=== PATIENT | female | born 1980 | race Caucasian/White ===

== ENCOUNTER 2023-03-02 13:48 | Outpatient (REF) | payer OTHER, SELFPAY ==
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
== END 2023-03-02 13:49 | disposition home or self-care (01) ==
LOC: HO.SH 13:48
PROVIDERS: Visit Provider Internal Medicine
DX: H90.3 Sensorineural hearing loss, bilateral (principal)
CPT/HCPCS: 92557; 92567; 92588; 92700

== ENCOUNTER 2023-08-05 12:56 | Outpatient (REF) | payer OTHER, SELFPAY | END 2023-08-05 12:57 | disposition home or self-care (01) | LOC: HO.SH 12:56 | PROVIDERS: Visit Provider Internal Medicine | DX: Z01.118 Encounter for examination of ears and hearing with other abnormal findings (principal); H90.3 Sensorineural hearing loss, bilateral | CPT/HCPCS: 92552; 92556; 92567; 92588 ==

== ENCOUNTER → 2025-08-01 15:51 | Outpatient (AMB) | payer OTHER, SELFPAY ==
--- NOTE | 2025-08-01 15:54 | MHC.OFFVIS ---
Intake Visit Reasons: 6m Allergies sulfamethoxazole (From Bactrim) Allergy (Unknown, Verified 08/01/25 15:54) Unknown trimethoprim (From Bactrim) Allergy (Unknown, Verified 08/01/25 15:54) Unknown Medication List - Last Reconciled 08/01/25 by Winter Dejesus CNP bupropion HCl XL 300 mg PO DAILY fluoxetine 60 mg PO QAM hydroxychloroquine 200 mg PO BID lorazepam 0.5 mg PO BID PRN metronidazole 0.75% topical DAILY minoxidil mg PO sumatriptan succinate 100 mg PO DIRECTED topiramate 100 mg PO DAILY HPI Comments Details: 45-year-old woman with depression, anxiety, mild tremors, and chronic headaches since age 14. She was doing okay. Migraines were controlled with topiramate. She had migraine about 1x/month. Sumatriptan as needed helped. Tremors in hands were much better. Sleep was okay. [facility] Medical History (Updated 08/01/25 @ 16:17 by Winter Dejesus CNP) Anxiety Depression Review of Systems Const Denies chills, Denies daytime sleepiness, Denies difficulty sleeping, Reports fatigue, Denies fever(s), Denies frequent falls, Reports headache(s), Denies increased appetite, Denies poor appetite, Denies snoring, Denies weakness, Denies weight gain and Denies weight loss Eyes Denies loss of vision ENT Denies vertigo, Reports dizziness, Reports headache(s) and Reports neck pain Card Denies chest pain at rest, Denies chest pain with activity, Denies syncope, Denies leg edema, Denies palpitations, Denies dyspnea and Denies dyspnea on exertion Resp Denies cough, Denies dyspnea, Denies dyspnea on exertion and Denies snoring GI Denies abdominal pain, Denies constipation, Denies heartburn, Denies diarrhea and Denies nausea Denies urinary frequency, Denies urinary incontinence and Denies urinary urgency Musc Denies abnormal gait, Denies back pain, Denies myalgias, Denies arthralgias, Reports neck pain, Denies numbness and Denies tingling Neuro Denies abnormal gait, Denies vertigo, Reports dizziness, Denies syncope, Denies frequent falls, Reports headache(s), Denies lack of coordination, Denies loss of vision, Reports memory loss, Denies numbness, Denies Other visual disturbances, Denies restless legs, Denies seizure-like activity, Denies tingling, Denies paresthesias, Denies tremor(s) and Denies weakness Psych Reports anxiety, Reports depression, Denies auditory hallucinations, Reports memory loss and Denies visual hallucinations Endo Reports fatigue and Denies palpitations Physical Exam Const Other: General Appearance:? normal, in no acute distress. Heart:? S1, S2 normal, no murmurs. Lungs:? clear anteriorly and posteriorly. Musculoskeletal:? normal. Extremities:? no edema. Psych:? alert, oriented, cognitive function intact, cooperative with exam. Neuro Other: Abnormal Neurological Findings:?Very mild hand tremors on sustained posture. Mental Status: alert and oriented X 3. Normal attention, orientation, memory, and affect. Cranial Nerves: Pupils are equal, round, and reactive to light. External ocular muscles are intact. Visual schneider are full, no ptosis. Face is symmetrical, no facial weakness or droop. Facial sensations are normal. Tongue protrudes in midline. Palate elevates symmetrically. Shoulder shrugging is normal Motor Examination: Normal muscle tone, bulk and strength. No atrophy or fasciculations. No drift of the extended upper extremities. DTR 2+. Plantars are flexor. Sensory Exam: Normal light touch, temperature, pinprick, vibration, and joint-position sensations. Rhomberg sign is absent. Coordination: No ataxia. No titubation. Gait Exam: Within normal limits. Cerebellar Signs: [id number] is okay. Extrapyramidal System: Tremor as above. No rigidity with normal facial expressions. No bradykinesia. No bradyphrenia. Normal arm swing and posture. No propulsion or retropulsion. Speech: Normal. Assessment & Plan Assessment & Plan (1) Migraine: Code(s): G43.909 - Migraine, unspecified, not intractable, without status migrainosus Category: Medical Qualifiers: Intractability: not intractable Migraine type: unspecified Status migrainosus presence: without status migrainosus Qualified Code(s): G43.909 - Migraine, unspecified, not intractable, without status migrainosus Plan: Continue topiramate 100mg 1 tablet at bedtime. Continue sumatriptan 100mg 1 tablet as needed for migraine. (2) Tremor: Code(s): R25.1 - Tremor, unspecified Category: Medical Plan: Tremors were mild and no medication was needed at this time. Medications: New sumatriptan succinate take 1 tab at onset of headache; if no relief, may repeat 1 tab after at least 2 hrs; max = 2 tabs/24 hrs PO 27 tabs 1RF 90 days topiramate 100 mg PO BEDTIME 90 tabs 1RF 90 days Discontinued sumatriptan succinate Discontinued Reason: Order 100 mg PO DIRECTED Coding Level of Care Code Est Pt Level 4 (48711) Diagnoses Migraine without status migrainosus, not intractable, unspecified migraine type G43.909 Intractability: not intractable Migraine type: unspecified Status migrainosus presence: without status migrainosus Tremor R25.1
--- OUTSIDE RECORDS SUMMARY | 2025-08-01 18:14 | XMS_ITS | Clinical Summary ---
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 3 Active butalbital-acet aminophen-caffe ine (FIORICET, ESGIC) 50-325-40 mg per tablet Take 1 Tablet by mouth every 4 hours as needed for Pain for up to 28 days. 3 Active metroNIDAZOLE (METROLOTION) 0.75 % lotion lotion Apply 1 Dose topically 2 times daily. 1 Active multivitamin (MULTI-DAY ORAL) MULTI-DAY VITAMINS OR Patient si tab daily Active SUMAtriptan (IMITREX) 100 mg tablet 4 Active topiramate (TOPAMAX) 100 mg tablet Take 1 tablet (100 mg total) by mouth 1 (one) time each day. 5 Active LORazepam (ATIVAN) 0.5 mg tablet Take 1 tablet (0.5 mg total) by mouth 2 (two) times a day if needed for anxiety. Max Daily Amount: 1 mg 30 tablet 5 Active Lo-Zumandimine, 28, 3-0.02 mg per tablet TAKE 1 TABLET BY MOUTH DAILY TAKE ONLY ACTIVE TABLETS, SKIP PLACEBO WITH GOAL OF THERAPEUTIC AMENORRHEA 84 tablet 2 5 Active buPROPion XL (WELLBUTRIN XL) 300 mg 24 hr tablet Take 1 tablet (300 mg total) by mouth 1 (one) time each day in the morning. 90 tablet 1 5 Active FLUoxetine (PROzac) 20 mg capsule Take 3 capsules (60 mg total) by mouth 1 (one) time each day. 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 Could be seasonal. Lichen simplex 08/08/2020 Overview (07/04/2024): Last Assessment & Plan: Likely LSC related to hormonal changes in the month. Could be cyclic yeast. Will send yeast culture and have her monitor symptoms. Burst and taper of Mycolog. Return prn lack of improvement or recurrence. Vitamin D deficiency 01/01/2020 Overview (07/04/2024): Last Assessment & Plan: Increase dose to 2,000 units daily. Low serum vitamin B12 01/01/2020 Hypertriglyceridemia 01/01/2020 Allergic rhinitis 01/17/2015 Mixed hyperlipidemia 09/17/2011 Tension headache 09/17/2010 History of cholecystectomy 07/19/2009 Weight gain 05/28/2008 Overview (07/04/2024): Last Assessment & Plan: I explained to Sabas that her weight changes likely have more to do with her diet and exercise, but given she requires OCP for contraception anyway, she may have some benefit to her weight. We will see. I recommended calorie counting, and regular cardio and weight bearing exercise for weight loss. She will try this. She declines referral to soda worker or weight management. Anxiety 05/28/2008 Depression 10/28/2005 Encounters Date Type Department Care Team Description 07/02/2025 8:00 AM EDT Office Visit Adult [address] [phone] Shane Antonio MD Hypersomnolence (Primary Dx); Need for prophylactic vaccination and inoculation against influenza; Other fatigue; Depression, unspecified depression type; Anxiety from Last 3 Months Immunizations Immunization Administration Dates Next Due DTP 03/03/1983, 9,1978,1977,1978 H1N1 Inj Preservative Free 08/07/2009 HPV 9-valent (Gardisil) 9yo to less than 46yo 12/27/2022 Influenza trivalent, MDCK, 0 .5mL, preservative free (Flucelvax) 6mo and older 07/02/2025 Influenza trivalent, with preservative (Fluzone; Afluria) 6mo and older 07/19/2023,07/12/2017,06/30/2016,2010,06/19/2009,07/30/2008 Influenza, Unspecified 07/03/2018 MMR, measles mumps and rubel la Live (Priorix; M-M-R II) 12mo and older 05/27/2010,04/02/1992,05/15/1979 Measles 04/27/2010 Moderna SARS-CoV-2 COVID-19, mRNA, LNP-S, preservative free 08/07/2021,11/11/2020,10/14/2020 OPV 03/03/1983, 9,1978,1977,1978 PPD Test 06/17/2004 Rubella 02/09/2002 Td Tetanus diptheria (Tdvax) 7yo and older 05/01/2001 Tdap Tetanus diptheria acell ular pertussis (Boostrix; Adacel) 7yo and older 03/10/2021,09/17/2010 Surgical History Surgery Date Site/Laterality Comments COLONOSCOPY 10/13/07 PROCEDURE: [place] COLONOSCOPY FLX DX W/COLLJ SPEC WHEN PFRMD; COMMENT: Up to cecum, excellent preparation, normal CHOLECYSTECTOMY PROCEDURE: AK LAPAROSCOPY SURG CHOLECYSTECTOMY; COMMENT: 2005 MULTIPLE TOOTH EXTRACTIONS PROCEDURE: HISTORICAL DENTAL EXTRACTION Medical History Medical History Date Comments Depressive disorder, not els ewhere classified 10/28/2005 DX:Depressive disorder, not elsewhere classified S/P cholecystectomy DX:S/P beba cystectomy Other specified personal his tory presenting hazards to health(V15.89) DX:Other specifie d personal history presenting hazards to health(V15.89); COMMENT: 2000 Family History Medical History Relation Name Comments Hyperlipidemia Father Heart attack Maternal Grandfather 62 mi Hypertension Maternal Grandfather Diabetes Maternal Grandmother Other cancer Maternal Grandmother esophag eal Thyroid disease Maternal Grandmother Other: BCC Mother mohs procedure, headache Hypertension Paternal Grandfather Breast cancer Neg Hx Colon cancer Neg Hx Ovarian cancer Neg Hx Pancreatic cancer Neg Hx Uterine cancer Neg Hx Relation Name Status Comments Father Alive Maternal Grandfather Maternal Grandmother Mother Alive Paternal Grandfather Social History Tobacco Use Types Packs/Day Years Used Date Smoking Tobacco: Never Smokeless Tobacco: Never Tobacco Cessation:Counseling Given: Not Answered Alcohol Use Standard Drinks/Week Comments Yes 0 (1 standard drink = 0.6 oz pur e alcohol) Housing Instability Answer Date Recorde d Are you worried that in the next 2 months you may not have stable housing? No 08/06/2024 Food Access & Nutrition Answer Date Rec orded Do you have access to a vari ety of food including fruits and vegetables? Yes 08/06/2024 Access to Healthcare Answer Date Record ed Within the last 3 months, ho w many times did you visit the emergency department for your medical care? 0 08/06/2024 Health Literacy Answer Date Recorded How often do you need to hav e someone help you when you read instructions, pamphlets, or other written material from your doctor or pharmacy? Never 08/06/2024 Caregiver: How often do you need to have someone help you when you read instructions, pamphlets, or other written material from your doctor or pharmacy? Not on file 08/06/2024 Financial Risk Answer Date Recorded How hard is it for you to pa y for the very basics like food, housing, medical care, and air conditioning / heating? Not very hard 08/06/2024 Transportation Answer Date Recorded Has the lack of transportati on kept you from meetings, work, or from getting things needed for daily living? No Has the lack of transportati on kept you from medical appointments or from getting medications? No 08/06/2024 Social Isolation Answer Date Recorded How often do you feel lonely or isolated from those around you? Sometimes 08/06/2024 Food Risk Answer Date Recorded Within the past 12 months we worried whether our food would run out before we got money to buy more. Never true 08/06/2024 Within the past 12 months th e food we bought just didn't last and we didn't have money to get more. Never true 08/06/2024 Dependent Care Answer Date Recorded Do you need help finding or paying for care for your loved ones. For example, child support investigator or elderly care for an older adult? No 08/06/2024 Education Answer Date Recorded Do you think completing more education or training, like finishing a GED, going to college, or learning a trade, would be helpful for you? No 08/06/2024 Employment and Income Answer Date Recor ded During the last four weeks, have you been actively looking for work? No 08/06/2024 Living Situation Answer Date Recorded What is your living situation? Unrecognized valu e 08/06/2024 Comments No Sex and Gender Information Value Date Recorded Sex Assigned at Not on file Legal Sex Female 8:51 PM EST Gender Identity Not on file Sexual Orientation Not on file Obstetrics History Para Term AB IAB SAB Ectopic Multiple Livin g Live Births 0 0 0 0 Last Filed Vital Signs Vital Sign Reading Time Taken Comments Blood Pressure 108/64 07/02/2025 8:04 AM EDT Pulse 88 07/02/2025 8:04 AM EDT Temperature 36.6 C (97.8 F) 07/02/2025 8:04 AM EDT Respiratory Rate 14 07/02/2025 8:04 AM EDT Oxygen Saturation 99% 07/02/2025 8:04 AM EDT Inhaled Oxygen Concentration - - Weight 63 kg (139 lb) 07/02/2025 8:04 AM EDT Height 160 cm (5' 3 ) 07/02/2025 8:04 AM EDT Body Mass Index 24.62 07/02/2025 8:04 AM EDT Plan of Treatment Upcoming Encounters Date Type Department Care Team (Late st Contact Info) Description 08/26/2025 4:00 PM EST Appointment Radiology Department - [address] [phone] 10/09/2025 4:00 PM EST Office Visit [facility] - [address] [phone] Kamar Dangelo PA [address] [place], [place] 01/30/2026 3:45 PM EDT Office Visit Nephrology - [address] [phone] Sohan Mendoza MD [address] [phone] Health Maintenance Due Date Last Done Comments Hepatitis B Vaccines (1 of 3 - 19+ 3-dose series) 1997 HIV Screening 11/02/2019 Hepatitis C Screening 11/02/2019 HPV Vaccines (2 - 3-dose SCDM series) 01/24/2023 12/27/2022 COVID-19 Vaccine ( season) 2025 09/20/2022, 08/07/2021, 11/11/2020, Additional history exists Social Influencers of Health Screening 08/06/2025 08/06/2024 Breast Cancer Screening 08/10/2026 08/10/20 24, 08/01/2023, 07/23/2022, Additional history exists Cervical Cancer Screening: HPV 12/08/2026 12/08/2021 Cholesterol Screening (Lipid Panel) 06/13/2028 06/13/2023 Colorectal Cancer Screening: Colonoscopy 03/16/2029 03/16/2024 DTaP,Tdap,and Td Vaccines (9 - Td or Tdap) 03/10/2031 03/10/2021, 09/17/2010, 05/01/2001, Additional history exists RSV Immunization Adult Patients (1 - 1-dose 75+ series) 2053 IPV Vaccines Completed 03/03/1983, 10/1978, 1978, Additional history exists MMR Vaccines Completed 05/27/2010, 10/1991, 05/15/1979 Depression Screening Completed 03/01/2025 Influenza Vaccine Completed 07/02/2025, , 07/03/2018, Additional history exists HIB Vaccines Aged Out No longer eligi ble based on patient's age to complete this topic Hepatitis A Vaccines Aged Out No long er eligible based on patient's age to complete this topic Meningococcal ACWY Vaccine Aged Out N o longer eligible based on patient's age to complete this topic Meningococcal B Vaccine Aged Out No l onger eligible based on patient's age to complete this topic Pneumococcal Vaccine: Pediatrics (0 to 5 Years) and At-Risk Patients (6 to 49 Years) Aged Out No longer eligible based on patient's age to complete this topic RSV Immunization Patients Under 20 months Aged Out No longer eligible based on patient's age to complete this topic Varicella Vaccines Aged Out No longer eligible based on patient's age to complete this topic Procedures Procedure Name Priority Date/Time Associated Diagnosis Comments MG MAMMO DIGITAL SCREENING W ALEX BILAT Routine 08/10/2024 4:05 PM EST Encounter for screening mammogram for breast cancer EXTERNAL COLONOSCOPY REPORT Routine 03/16/2024 12:00 AM EDT LIPID PANEL Routine 06/13/2023 HM HPV Routine 12/08/2021 from Last 3 Months or Most Recently Relevant to Health Maintenance Results * MG Mammo Digital Screening w Alex bilat (08/10/2024 4:05 PM EST) Anatomical Region Laterality Modality Breast Bilateral Mammography 08/13/2024 9:33 AM EST Impressions 08/13/2024 11:30 AM EST Stable mammographic appearance of the breasts. No evidence of malignancy is seen. A negative mammogram in the presence of a clinically suspicious palpable abnormality does not preclude the possibility of malignancy or alter the indications for biopsy. BI-RADS: Category 1: Negative RECOMMENDATION(S): 1: Routine screening mammogram BILATERAL in 1 year. Mammo Location: [facility], [address] [place] [address], [phone], . -------- FINAL REPORT -------- Dictated By: Rubi Frias Dictated Date: 08/13/2024 09:33 ET Assigned Physician: Rubi Frias Reviewed and Electronically Signed By: Rubi Frias Signed Date: 08/13/2024 11:30 ET Workstation ID: [id number] Transcribed By: Self Edit Transcribed Date: 08/13/2024 09:34 ET Narrative 08/13/2024 11:30 AM EST EXAM: MAMMO DIGITAL SCREENING W ALEX BILAT EXAM DATE: 08/10/2024 4:03 PM HISTORY: Breast cancer screen, avg risk, asymptomatic (Age => 40y) COMPARISON: Mammograms dating back to 07/12/2020 with most recent of 08/01/2023. TECHNIQUE: Bilateral digital breast tomosynthesis was performed in the CC and MLO projections. Computer aided detection with IQ Elite AI 3D 3.1 was employed. TISSUE DENSITY: c. The breasts are heterogeneously dense. FINDINGS: No suspicious masses, grouped microcalcifications, or areas of architectural distortion are seen. The skin and vascularity are unremarkable. Procedure Note Rubi Frias MD - 08/13/2024 EXAM: MAMMO DIGITAL SCREENING W ALEX BILAT EXAM DATE: 08/10/2024 4:03 PM HISTORY: Breast cancer screen, avg risk, asymptomatic (Age => 40y) COMPARISON: Mammograms dating back to 07/12/2020 with most recent of08/01/2023. TECHNIQUE: Bilateral digital breast tomosynthesis was performed in the CCand MLO projections. Computer aided detection with i[employer] AI 3D 3.1was employed. TISSUE DENSITY: c. The breasts are heterogeneously dense. FINDINGS: No suspicious masses, grouped microcalcifications, or areas ofarchitectural distortion are seen. The skin and vascularity areunremarkable. IMPRESSION: Stable mammographic appearance of the breasts. No evidence of malignancyis seen. A negative mammogram in the presence of a clinically suspicious palpableabnormality does not preclude the possibility of malignancy or alter theindications for biopsy. BI-RADS: Category 1: Negative RECOMMENDATION(S): 1: Routine screening mammogram BILATERAL in 1 year. Mammo Location: [facility], [address] [place] [address], [phone], . -------- FINAL REPORT -------- Dictated By: Rubi Frias Dictated Date: 08/13/2024 09:33 ET Assigned Physician: Rubi Frias Reviewed and Electronically Signed By: Rubi Frias Signed Date: 08/13/2024 11:30 ET Workstation ID: [id number] Transcribed By: Self Edit Transcribed Date: 08/13/2024 09:34 ET Lidia Andrews MD IMG BI PROCEDURES Final Res ult * External Colonoscopy Report (03/16/2024 12:00 AM EDT) Anatomical Region Laterality Modality Endoscopy Result [facility] Historical Provider GI~PROCEDURE ORDERABLES E dited Result - Final * (ABNORMAL) Lipid panel (06/13/2023) Pathologist [facility] LDL/HDL Ratio 3 0 - 4 Triglycerides 144 0 - 150 mg/dL Cholesterol 245(A) 0 - 200 mg/dL HDL 85 >=40 mg/dL LDL Cholesterol 132(A) 0 - 100 mg/dL Blood Venous blood specimen / Unknown Historical Provider LAB BLOOD ORDERABLES Carole l Result * Cervical Cancer Screening: HPV (12/08/2021) Pathologist [facility] Cervical Cancer Screening: HPV Negative, Abstracted Historical Provider HEALTH MAINTENANCE Final Result from Last 3 Months or Most Recently Relevant to Health Maintenance Insurance [employer] Care Teams Rotary Kiln Operator Relationship Specialty Start Date End Date Shane Antonio MD [address] [place], [place] [address] [phone] PCP - General Internal Medicine 11/07/20
--- OUTSIDE RECORDS SUMMARY | 2025-08-01 18:14 | XMS_ITS ---
Author Name [facility] Organization Unknown Care Team Organization Name Specialty Phone Email Start Date End Da te [facility] ERICK CRUZ Primary Care 08/10/2022 4
== END ==
LOC: HO.HSM 15:52
PROVIDERS: PCP Internal Medicine; Referring Provider Internal Medicine; Visit Provider Registered Nurse
DX: G43.909 Migraine, unspecified, not intractable, without status migrainosus (principal); R25.1 Tremor, unspecified
CPT/HCPCS: 99214